=== PATIENT | male | born 1965 ===

== ENCOUNTER 2016-09-22 07:38 | Day surgery (SDC) | payer BC ==
[2016-09-22 08:27] VITALS: BMI 34.0
[2016-09-22] MEDS ORDERED: Lactated Ringer's 500 ML IV ONE (09:45)
[2016-09-22] MEDS ORDERED: Propofol 10 mg/ml Inj (20 ML) ONE (09:47)
[2016-09-22] MEDS ORDERED: Midazolam 2 MG/2 ML VIAL ONE (09:48)
[2016-09-22 10:35] VITALS: RESP 14
[2016-09-22 11:28] VITALS: BP 144/91; PULSE 72; TEMP 97.3; O2SAT 99
== END 2016-09-22 11:25 | disposition home or self-care (01) ==
LOC: C.ENDO 07:38
PROVIDERS: ATTEND Internal Medicine Gastroenterology
DX: Z12.11 Encounter for screening for malignant neoplasm of colon (principal); D12.5 Benign neoplasm of sigmoid colon; D12.3 Benign neoplasm of transverse colon; K64.1 Second degree hemorrhoids
CPT/HCPCS: 45380; 82948; 88305; J2250; J2704; J7120

== ENCOUNTER → 2017-09-22 | Day surgery (SDC) | payer BC ==
[2017-09-21 12:13] VITALS: BMI 35.2
[~2017-09-22] MED LIST: Iodixanol 320 MG/ML 100 ML BOTTLE IV ONE; Midazolam 2 MG/2 ML VIAL ONE; Nitroglycerin 50mg in D5W 50 MG/250 ML BOTTLE IV ONE; Verapamil 2 ML ONE
--- NOTE | 2017-09-24 10:22 | CARDCATH ---
PROCEDURE DATE: 09/22/2017. PROCEDURES: 1. Left heart catheterization. 2. Coronary angiogram. 3. Radiological supervision and radiological interpretation of the left heart catheterization and coronary angiogram. CLINICAL INDICATIONS: 1. Exertional angina. 2. Abnormal stress test. 3. Hypertension. 4. Hyperlipidemia. 5. Obesity. PERFORMING PHYSICIAN: Sujit Perdue MD. PROCEDURE: After informed consent, the patient was prepped and draped in the usual sterile fashion. A 2% lidocaine was given in the right wrist for local anesthesia. Using micropuncture technique, 6 Salvadorean sheath was introduced into the right radial artery. A 6-Salvadorean JR4 diagnostic catheter crossed into left ventricle across the aortic valve. LV end-diastolic pressure measured. Contrast injected and LV angiogram was done. The catheter was pulled back across the aortic valve. Gradient across the aortic valve was measured. The same catheter engaged into right coronary artery. Contrast injected and right coronary angiogram was done with multiple views. The catheter was exchanged to Sunset catheter over 0.035 wire. The Sunset catheter engaged into left main coronary artery. Contrast injected and left coronary angiogram was done. The patient tolerated the procedure well. Postprocedure, Terumo radial band applied to right wrist with excellent hemostasis. FINDINGS: 1. Left main coronary artery is patent. 2. Distal LAD has a nonobstructive 30 to 40% concentric stenosis. Proximal and mid LAD and diagonal branches were patent. 3. Left circumflex and obtuse marginal branches are patent. 4. Right coronary artery is large and dominant system. Right coronary artery is ectatic. Mid RCA has 85% concentric stenosis. 5. LV ejection fraction is approximately 70%. No wall motion abnormalities noted. EDP is 24. No gradient across the aortic valve. IMPRESSION: 1. Single vessel coronary artery disease. 2. Normal left ventricular systolic function. PLAN: Recommend intervention of the right coronary artery. Sujit Perdue MD
== END | disposition home or self-care (01) ==
LOC: C.CATHLAB 07:51
PROVIDERS: ATTEND Internal Medicine Cardiovascular Disease
DX: I25.10 Atherosclerotic heart disease of native coronary artery without angina pectoris (principal); E11.9 Type 2 diabetes mellitus without complications; I10 Essential (primary) hypertension; E78.00 Pure hypercholesterolemia, unspecified; Z79.84 Long term (current) use of oral hypoglycemic drugs; E66.9 Obesity, unspecified; Z68.35 Body mass index [BMI] 35.0-35.9, adult
CPT/HCPCS: 93458; J1644; J2001; J2250; J3010; Q9967

== ENCOUNTER 2018-09-14 08:40 | Outpatient (CLI) | payer BC | END 2018-09-14 08:41 | disposition home or self-care (01) | LOC: C.CARD 08:40 | DX: R07.89 Other chest pain (principal); Z95.5 Presence of coronary angioplasty implant and graft ==